=== PATIENT | male | born 1945 | race Caucasian/White ===

== ENCOUNTER 2019-07-29 08:30 | Outpatient (RCR) | payer BC, SELFPAY ==
[2019-03-02 13:48] VITALS: BP 128/74; BP 132/78; RESP 16; O2SAT 94; BMI 34.8
--- NOTE | 2019-03-04 10:46 | PR.IEVALNOTE ---
Current Diagnoses Other specified interstitial pulmonary diseases (03/02/19) Provider Team Visit Care Team Role Provider Type Esvin Cooney MD Attending Provider Non-Staff Specialty: Medical Address: [address] [place] [address] [id number], [place], [address] Email: Pulmonary Rehab Initial Evaluation MD Pulmonary Rehab Inital Assessment Start: 03/02/19 13:45 Freq: Status: Active Protocol: Document 03/02/19 13:48 JACOBO (Rec: 03/02/19 14:23 LISATami [id number]) MD Exercise Assessment Dx: Interstitial Lung Disease Primary Language KAZAKH Avp Required No Hearing Ability Normal Visual Impairment No Limitations Visual Difficutly None Visual Assist None Musculoskeletal Symptoms Abnormal Gait Back Pain Muscle Weakness Body Alignment Posture Good Posture Rigid Assistive Devices None Comment denies current exercise, maintains an active lifestyle and works MD Vital Signs Pulse Oximetry (91-100 %) 94 Nasal Cannula No Comment: pt is prescribed supplemental O2 Respiratory Rate (12-24 breaths/min) 16 Respiratory Effort Non-Labored Respiratory Depth Normal Assessment rhonchi on right through out on expiration, clear on right slight crackles in bases bilateral Right Arm Blood Pressure (90/60-140/90 mmHg) 128/74 Blood Pressure Method Manual Cuff/Auscultation Blood Pressure Position Sitting Left Arm Blood Pressure (90/60-140/90 mmHg) 132/78 Blood Pressure Method Manual Cuff/Auscultation Blood Pressure Position Sitting Bilateral Comment +1 edema right>left MD Six Minute Walk Test Oxygen Delivery Method Nasal Cannula Oxygen Flow Rate (L) (L/min) 4 Respiratory Rate (breaths/min) 16 Pulse Rate (beats/min) 69 O2 Saturation by Pulse Oximetry (%) 94 Pulse Rate (beats/min) 95 Ambulation Distance (feet) 200 O2 Saturation by Pulse Oximetry (%) 94 Pulse Rate (beats/min) 102 Ambulation Distance (feet) 200 O2 Saturation by Pulse Oximetry (%) 91 Pulse Rate (beats/min) 103 Ambulatory Distance (feet) 200 O2 Saturation by Pulse Oximetry (%) 89 Pulse Rate (beats/min) 104 Ambulation Distance (feet) 150 O2 Saturation by Pulse Oximetry (%) 89 Pulse Rate (beats/min) 104 Ambulation Distance (feet) 250 O2 Saturation by Pulse Oximetry (%) 91 PUlse Rate (beats/min) 105 Ambulation Distance (feet) 275 O2 Saturation by Pulse Oximetry (%) 92 Respiratory Rate (breaths/min) 14 Pulse Rate (beats/min) 55 O2 Saturation by Pulse Oximetry (%) 97 Activity Tolerance Good Adverse Reactions Desaturation Distance 1375 Olivia RPE Scale 13 Oriented to RPE Scale Yes Dyspnea 4 Oriented to Dyspnea Scale Yes MD Exercise Goals Exercise Goals progression of exercise program will result from increases in time, intensity, and frequency. Initial emphasis will be on increasing time Exercise Goals demonstrate proper technique with pursed lip breathing demonstrate breath sequencing with exercise program, ADL's, stairs, etc demonstrate proper technique of respiratory medications DASI Number and Comment 7.98 Short Term initiate independent exercise 1-2 times /wk MD Pulmonary Rehab Orientation Complete Complete Yes MD Nutrition Assessment PFT Date 02/09/19 Forced Vital Capacity (FVC) 3.66 78% Forced Exp. Volume/Forced Vital Cap 61% Ratio (FEV1/FVC Ratio) Forced Expiratory Volume in 1 sec. 2.23 63% Diffusing Capacity of the Lung (DLCO) 17.4 52% Admit Height 180.34 cm Admit Weight 113.398 kg Admit Body Mass Index (BMI) 34.8 Liters Per Minute at Rest 2-3 Lpm Liters per Minute with ADL's 6 Lpm pulsed dose Liters per Minute with Sleep 2-3 Lpm Liters per Minute with Exercise 4-6 Lpm Oxygen Intervention/Education discuss benefits of adherence to supplemental oxygen as prescribed reinforce principles of oxygen use, safety and travel titrate supplemental oxygen to maintain Spo2 >= 88-90% High Energy Periods [employer] Morning Mid-Morning Tolerates Activity Good Signs and Symptoms Activity Intolerance Dyspnea on Exertion Weakness on Exertion Daytime Naps No MD Education Pre-Test Score 86% Tobacco Use Former, Quit >6 Months Tobacco Product Used cigarettes Total Years Used 20 Packs Per Day 2 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 Esvin Aguilar Physician Comment Ready for Pulmonary Rehabilitation Cooperative Motivated
--- NOTE | 2019-05-05 16:23 | PR.REVALNOTE ---
Current Diagnoses Other specified interstitial pulmonary diseases (05/05/19) Provider Team Visit Care Team Role Provider Type Esvin Cooney MD Attending Provider Non-Staff Specialty: Medical Address: [address] [place] [address] [id number], [place], [address] Email: Pulmonary Rehab Re-Evaluation [place] Pulmonary Rehab. Re-Assessment Start: 03/02/19 13:45 Freq: Status: Active Protocol: Document 04/21/19 13:42 JACOBO (Rec: 04/21/19 13:42 [facility] [id number]) [place] Exercise Re-Assessment New Session Number 1-12 Type Treadmill NEERU Interval Training Yes Shortness of Breath with Exercise Yes Desaturation with Exercise Yes Document 05/05/19 16:12 JWTami (Rec: 05/05/19 16:22 JACOBO [id number]) [place] Exercise Re-Assessment New Session Number 2-12 Type Treadmill NEERU METs (resistance level) 4.82 TM 6.20STRDR % Improvement 69% TM 57% strdr Interval Training Yes: 17.6 mets STRDR Shortness of Breath with Exercise Yes Desaturation with Exercise Yes Free Weight Yes: 4# 12R 2S Band Level Yes: #4 Toward Target Goals Increase in MET tolerance- showing progress participates in aerobic activities 30-60 min 2x week at appropriate intensity -goal met and showing progress [place] Nutrition Re-Assessment Hypoxia Re-Assessment Current supplemental O2 requirement during exercise 4- 8 lpm varies with exercise [place] Psychosocial Re-Assessment Patient in Class Regularly Yes Interventions Pt attending class regularly Referral Needed No Goals Pt will continue to attend classes 3x wk Participate in social and educational discussion Received emotional support from family/friends
[2019-06-02 09:47] VITALS: BMI 33.0
--- NOTE | 2019-06-02 11:15 | PR.REVALNOTE ---
Current Diagnoses Other specified interstitial pulmonary diseases (06/02/19) Provider Team Visit Care Team Role Provider Type Esvin Cooney MD Attending Provider Non-Staff Specialty: Medical Address: [address] [place] [address] [id number], [place], [address] Email: Pulmonary Rehab Re-Evaluation [place] Pulmonary Rehab. Re-Assessment Start: 03/02/19 13:45 Freq: Status: Active Protocol: Document 04/21/19 13:42 JACOBO (Rec: 04/21/19 13:42 JACOBO [id number]) [place] Exercise Re-Assessment New Session Number 1-12 Type Treadmill NEERU Interval Training Yes Shortness of Breath with Exercise Yes Desaturation with Exercise Yes Document 05/05/19 16:12 JACOBO (Rec: 05/05/19 16:22 JACOBO [id number]) [place] Exercise Re-Assessment New Session Number 2-12 Type Treadmill NEERU METs (resistance level) 4.82 TM 6.20STRDR % Improvement 69% TM 57% strdr Interval Training Yes: 17.6 mets STRDR Shortness of Breath with Exercise Yes Desaturation with Exercise Yes Free Weight Yes: 4# 12R 2S Band Level Yes: #4 Toward Target Goals Increase in MET tolerance- showing progress participates in aerobic activities 30-60 min 2x week at appropriate intensity -goal met and showing progress [place] Nutrition Re-Assessment Hypoxia Re-Assessment Current supplemental O2 requirement during exercise 4- 8 lpm varies with exercise [place] Psychosocial Re-Assessment Patient in Class Regularly Yes Interventions Pt attending class regularly Referral Needed No Goals Pt will continue to attend classes 3x wk Participate in social and educational discussion Received emotional support from family/friends Document 06/02/19 09:47 JACOBO (Rec: 06/02/19 11:14 JACOBO [id number]) [place] Exercise Re-Assessment New Session Number 12-24 Type Treadmill BioDex METs (resistance level) 4.82TM 5.6Strdr % Improvement 0%TM 1%Strdr Interval Training Yes: 20.0 METS Strdr Shortness of Breath with Exercise Yes Desaturation with Exercise Yes: Demonstrates progress with O2 titration to keep SpO2 >90% Free Weight Yes: 6# 12r 2s Band Level Yes: #5 Toward Target Goals Increase in hand weight demonstrates proper technique with pursed lip breathing demonstrates and verbalizes good understanding of breath sequencing with ADL's and on stairs [place] Nutrition Re-Assessment Height 182.88 cm Weight 110.677 kg Current BMI (BMI) 33.0 Progress to Weight Goal Yes Hypoxia Re-Assessment uses oxygen as prescribed Lpm at RA LPM with ADL's 2-6 LPM with CVEX 6-10 [place] Education Re-Assessment Topics Normal Anatomy and Physiology Breathing Retraining Bronchial Hygiene Medication Irritant Avoidance/Prevention of Respiratory Infections Goals Pt will Master PLB and Diaphragmatic Breathing Pt will Master Energy Conserving Techniques Pt will learn exercise safety Pt will continue ED topics until completion [place] Psychosocial Re-Assessment Patient in Class Regularly Yes Interventions Pt attending class regularly Goals Pt will continue to attend classes 3x wk Participate in social and educational discussion Received emotional support from family/friends
--- NOTE | 2019-07-07 16:03 | PR.REVALNOTE ---
Current Diagnoses Other specified interstitial pulmonary diseases (07/07/19) Visit Care Team Role Provider Type Esvin Cooney MD Attending Provider Non-Staff Specialty: Medical Address: [address] [place] [address] [id number], [place], [address] Email: Pulmonary Rehab Re-Evaluation [place] Pulmonary Rehab. Re-Assessment Start: 03/02/19 13:45 Freq: Status: Active Protocol: Document 04/21/19 13:42 JACOBO (Rec: 04/21/19 13:42 [facility] [id number]) [place] Exercise Re-Assessment New Session Number 1-12 Type Treadmill,NEERU Interval Training Yes Shortness of Breath with Exercise Yes Desaturation with Exercise Yes Document 05/05/19 16:12 JACOBO (Rec: 05/05/19 16:22 JACOBO [id number]) [place] Exercise Re-Assessment New Session Number 2-12 Type Treadmill,NEERU METs (resistance level) 4.82 TM 6.20STRDR % Improvement 69% TM 57% strdr Interval Training Yes: 17.6 mets STRDR Shortness of Breath with Exercise Yes Desaturation with Exercise Yes Free Weight Yes: 4# 12R 2S Band Level Yes: #4 Toward Target Goals Increase in MET tolerance- showing progress participates in aerobic activities 30-60 min 2x week at appropriate intensity -goal met and showing progress [place] Nutrition Re-Assessment Hypoxia Re-Assessment Current supplemental O2 requirement during exercise 4- 8 lpm varies with exercise [place] Psychosocial Re-Assessment Patient in Class Regularly Yes Interventions Pt attending class regularly Referral Needed No Goals Pt will continue to attend classes 3x wk,Participate in social and educational discussion,Received emotional support from family/friends Document 06/02/19 09:47 JACOBO (Rec: 06/02/19 11:14 [facility] [id number]) [place] Exercise Re-Assessment New Session Number 12-24 Type Treadmill,BioDex METs (resistance level) 4.82TM 5.6Strdr % Improvement 0%TM 1%Strdr Interval Training Yes: 20.0 METS Strdr Shortness of Breath with Exercise Yes Desaturation with Exercise Yes: Demonstrates progress with O2 titration to keep SpO2 >90% Free Weight Yes: 6# 12r 2s Band Level Yes: #5 Toward Target Goals Increase in hand weight demonstrates proper technique with pursed lip breathing demonstrates and verbalizes good understanding of breath sequencing with ADL's and on stairs [place] Nutrition Re-Assessment Height 182.88 cm Weight 110.677 kg Current BMI (BMI) 33.0 Progress to Weight Goal Yes Hypoxia Re-Assessment uses oxygen as prescribed Lpm at RA LPM with ADL's 2-6 LPM with CVEX 6-10 [place] Education Re-Assessment Topics Normal Anatomy and Physiology, Breathing Retraining,Bronchial Hygiene,Medication,Irritant Avoidance/Prevention of Respiratory Infections Goals Pt will Master PLB and Diaphragmatic Breathing,Pt will Master Energy Conserving Techniques,Pt will learn exercise safety,Pt will continue ED topics until completion [place] Psychosocial Re-Assessment Patient in Class Regularly Yes Interventions Pt attending class regularly Goals Pt will continue to attend classes 3x wk,Participate in social and educational discussion,Received emotional support from family/friends Document 07/07/19 15:52 JACOBO (Rec: 07/07/19 16:03 JACOBO [email or web address]) [place] Exercise Re-Assessment New Session Number 24-32 Type Treadmill,NEERU METs (resistance level) 4.98 TM 15.13 STRDR % Improvement 3% TM 21% STRDR Interval Training Yes: 23 METS STRDR 30% IMPROVEMENT Shortness of Breath with Exercise Yes Desaturation with Exercise No Free Weight No Band Level Yes: # 6 BAND [place] Nutrition Re-Assessment Hypoxia Re-Assessment Pt titrates oxygen to maintain SpO2 =>88% depending on activity-goal met fly continue to monitor [place] Education Re-Assessment Topics Normal Anatomy and Physiology, Chronic Lung Disease,Breathing Retraining,Bronchial Hygiene, Medication,Benefits of Exercise Goals Pt will Master PLB and Diaphragmatic Breathing,Pt will Master Energy Conserving Techniques,Pt will learn exercise safety,Pt will continue ED topics until completion [place] Psychosocial Re-Assessment Patient in Class Regularly Yes Interventions Pt attending class regularly Goals Participate in social and educational discussion, Received emotional support from family/friends Additional Comment Patient lives in [place] and works in [employer] Patient attends Pulmonary Rehab 2x week Additional Comments Patient had sputum gram stain and culture with heavy growth of klebsiella oxytoca is currently on second 10 day course of Levaquin
--- NOTE | 2019-07-29 16:06 | PR.DCNOTE ---
Current Diagnoses Other specified interstitial pulmonary diseases (07/29/19) Visit Care Team Role Provider Type Esvin Cooney MD Attending Provider Non-Staff Specialty: Medical Address: [address] [place] [address] [address], [place], [address] Email: Pulmonary Rehab Discharge Evaluation [place] Pulmonary Rehab. [place] Assessment Start: 03/02/19 13:45 Freq: Status: Active Protocol: Document 07/29/19 15:46 JWS (Rec: 07/29/19 16:06 JWS [email or web address]) [place] Exercise Discharge Assess Session 9 Type Treadmill METs (resistance level) 4.98TM 20.88 Strdr % Improvement 0% Tm 38% Strdr Interval Training Yes Shortness of Breath with Exercise Yes Desaturation with Exercise No Free Weight Yes: 6# 12r 2s Band Level Yes: #6 band Intervention Demonstrates proper technique Witrh PLB-goal met Demonstrates proper paced breathing with ADL's-goal met Demonstrates proper medication use-goal met Toward Target Goals Improved functional capacity with improved endurance and strength [id number] ft. no stops 30% improvement Consistently doing independent purposeful exercise 3X week Increased time spent being more physically active [place] Nutrition DC Assessment Hypoxia Re-Assessment Uses oxygen as prescribed Titrates supplemental oxygen depending on activity level appropriately Patient Ready Yes Reason Completed Max Sessions [place] Education DC Assessment Post Test Score 86% no change Tobacco Use No [place] Psychosocial DC Assessment HADS Depression Score 2 HADS Anxiety Score 3 Referral Needed No [place] Six Minute Walk Test Oxygen Delivery Method Nasal Cannula Oxygen Flow Rate (L) (L/min) 6 Respiratory Rate (breaths/min) 12 Pulse Rate (beats/min) 65 O2 Saturation by Pulse Oximetry (%) 99 Pulse Rate (beats/min) 72 Ambulation Distance (feet) 250 O2 Saturation by Pulse Oximetry (%) 99 Pulse Rate (beats/min) 94 Ambulation Distance (feet) 350 O2 Saturation by Pulse Oximetry (%) 95 Pulse Rate (beats/min) 84 Ambulatory Distance (feet) 300 O2 Saturation by Pulse Oximetry (%) 92 Pulse Rate (beats/min) 88 Ambulation Distance (feet) 300 O2 Saturation by Pulse Oximetry (%) 91 Pulse Rate (beats/min) 88 Ambulation Distance (feet) 300 O2 Saturation by Pulse Oximetry (%) 91 PUlse Rate (beats/min) 94 Ambulation Distance (feet) 300 O2 Saturation by Pulse Oximetry (%) 91 Respiratory Rate (breaths/min) 14 Pulse Rate (beats/min) 69 O2 Saturation by Pulse Oximetry (%) 98 Activity Tolerance Excellent Adverse Reactions Pulse Increase > 20 bpm Distance 1800 Olivia RPE Scale 12 Oriented to RPE Scale Yes Dyspnea 3 Oriented to Dyspnea Scale Yes
== END 2019-08-10 10:57 | disposition home or self-care (01) ==
LOC: PUL 08:30
PROVIDERS: Visit Provider Internal Medicine Pulmonary Disease
DX: J84.89 Other specified interstitial pulmonary diseases (principal)
CPT/HCPCS: G0237; G0238

== ENCOUNTER → 2020-06-14 09:24 | Outpatient (CLI) | payer OTHER, SELFPAY ==
[2019-03-02 13:48] VITALS: BMI 34.8
== END ==
PROVIDERS: Referring Provider Internal Medicine Pulmonary Disease; Visit Provider Internal Medicine Pulmonary Disease
DX: R05 Cough (principal)
CPT/HCPCS: 87070; 87205